=== PATIENT | male | born 2000 | race African-American/Black ===

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

== ENCOUNTER 2022-12-05 22:53 | Emergency (ER) | payer MEDICAID, SELFPAY ==
[2022-12-05 22:53] VITALS: BP 145/97; PULSE 106; RESP 18; TEMP 36.2; O2SAT 99; BMI 22.2
--- NOTE | 2022-12-05 23:00 | ED.RN ---
PT STATES HE TOOK TYLENOL AT 2100 PRIOR TO COMING TO ER.
--- NOTE | 2022-12-05 23:06 | EDS_ITS ---
HPI History of Present Illness Chief Complaint: Other, Pain/Inj Informant: patient Narrative Narrative: Patient presents with right inguinal pain. He states has been going off and on for about 2 weeks. He is eating and drinking normally. He has no nausea and vo miting. He does have some constipation off and on but that has been going on for almost a year and is unchanged. He has not had fevers or chills. He cannot think of anything that makes it better or worse. He states I do not bother with any of that. He states his pain is 11 out of 10. However, while he states this he sitting calmly in bed scrolling through things on his phone. At times it is hard to get him to answer questions because he seems to be looking more at the phone than listening. He does state that he has no urinary problems and no testicular pain. No change in color or odor or difficulty starting or stopping stream. He denies any specific lifting or traumatic event. PFSH PFSH Home Medications naproxen 500 mg tablet 500 mg PO BID PRN pain #14 tabs 12/05/22 [Rx Last Taken Unknown] Allergy/AdvReac Type Severity Reaction Status Date / Time No Known Allergies Allergy Verified 12/05/22 22:57 Social History Smoking Status: Current every day smoker tobacco type: cigarettes ROS ROS ED Constitutional Constitutional ED: Denies chills or fever(s) ENT ENT ED: Denies sore throat Cardiovascular Cardiovascular: Denies chest pain Respiratory/Chest Respiratory/Chest: Denies cough Gastrointestinal Gastrointestinal: Reports constipation and other Details: See history of present illness ; Denies abdominal pain, diarrhea, melena, nausea or vomiting Genitourinary Genitourinary ED: Denies dysuria, hematuria or urinary frequency Musculoskeletal Musculoskeletal: Denies myalgias Integumentary Denies rash Neurologic Neurologic: Denies paresthesias or weakness Endocrine Endocrinology: Denies polydipsia or polyuria Allergic/Immunologic Allergic/Immunologic ED: Denies urticaria EXAM Physical Exam Narrative Exam Narrative: Patient sitting quietly in bed. He is scrolling through phone. He looks comfortable and nontoxic. HEENT shows well-hydrated membranes no sign of trauma Neck is free range of motion. Cardiorespiratory show clear lungs and heart is regular. Abdomen is soft, normal bowel sounds and completely nontender. It is not dist ended. I feel no mass. He points to the left inguinal area as the area of his discomfort. It looks normal on exam. There is no swelling rash mass or infection. Pulses are normal. : No CVA or suprapubic tenderness. His testicles have a normal lie position and are not tender. However, he does have a hernia on the left only when I have him cough and straining. It spontaneously reduces back. He has a small amount of motion on the right but not as much as he does on the left. When I do this exam and he coughs that does cause some discomfort for him. But this hernia spontaneously reduces. Skin shows no skin changes rash infection or abscess Extremities show no edema. Const Vital Signs: 12/05/22 22:53 12/05/22 22:58 Temperature 97.1 F L Temperature Source Temporal Pulse Rate 106 H Respiratory Rate 18 Respiratory Effort Normal Non-Labored Respiratory Pattern Normal Blood Pressure 145/97 H Blood Pressure Mean 113 Pulse Ox 99 Oxygen Delivery Method Room Air MDM MDM MDM Narrative Medical decision making narrative: Patient's been having symptoms off and on for weeks. He has no nausea vomiting. He has no change in his bowel habits although he does have some chronic constipation. His exam is normal other than a spontaneously reducing left inguinal hernia. His testicular exam is normal. I do not think he requires ultrasound looking of the testicles. I do not think he needs x-rays or imaging or CT of his abdomen as his abdomen is benign he is eating and drinking and moving his bowels. I think his symptoms represent a left inguinal hernia. It spontaneously reduces and does not need surgery at this time. I did explain to the patient the difference between a hernia and a hernia that is incarcerated or strangulated. We discussed that if either 1 of these issues occurs he should return. We will give him referral to surgery. We will give nonsteroidals for discomfort. Discharge Plan Triage Chief Complaint: Other, Pain/Inj ED Provider: Ghassan Quinonez Dx/Rx/DC Orders Clinical Impression: Left inguinal hernia Instructions: ED Hernia (Adult) Prescriptions: New naproxen 500 mg tablet 500 mg PO BID PRN (Reason: pain) Qty: 14 0RF Primary Care Provider: Care Physician,No Primary Referrals: Rosas Suarez MD [Med Staff - Active Staff] - As soon as possible Care Physician,No Primary [Primary Care Provider] - Disposition Disposition: Home, Self Care
[2022-12-05 23:29] VITALS: BP 124/63; PULSE 75; RESP 16; O2SAT 98
[2022-12-05] MEDS: Naproxen 500 MG Tablet PO (23:30)
== END 2022-12-05 23:31 | disposition home or self-care (01) ==
LOC: ED 23:18
PROVIDERS: Emergency Provider Emergency Medicine; Visit Provider Emergency Medicine
DX: K40.90 Unilateral inguinal hernia, without obstruction or gangrene, not specified as recurrent (principal); F17.210 Nicotine dependence, cigarettes, uncomplicated
CPT/HCPCS: 99283

== ENCOUNTER 2023-01-18 07:15 | Day surgery (SDC) | payer MEDICAID, SELFPAY ==
[2023-01-18] VITALS (12 sets, daily range): BP systolic 117–151; BP diastolic 71–90; PULSE 64–104; RESP 16–20; TEMP 36.1–36.9; O2SAT 92–100; BMI 25.1
--- NOTE | 2023-01-18 07:33 | HP.PCM.SX_ITS ---
HPI - General HPI Narrative AIMEE YO, is a 22 M who presents for left inguinal hernia repair with mesh. Patient states he was having pain yesterday and also had a bulge that area. Patient currently states the bulge is not there anymore. office visit 12/10/22: HPI: 22-year-old male presents with his girlfriend due to left inguinal hernia.? Patient did go to the ER and have this reduced previously.? Patient states that when he went to the ER in the last week he had a bulge he did not try to reduce it himself.? Patient girlfriend states size of a golf ball.? Patient rated his pain at that time and 9 out of 10 currently patient does not have a bulge and states his pain is a 0 out of 10.? Patient denies any nausea or vomiting with this.? Patient states he has bowel movement every other day and may once a month have some small amount of bright red blood when he wipes.? Patient does admit to history of hemorrhoids has tried Preparation H in the past.? Patient does not drink enough water during the day.? Denies any straining or prolonged time on the toilet. [facility] Medical History Migraine headache Smoker Home Medications NK 12/23/22 [History Last Taken Unknown] Allergy/AdvReac Type Severity Reaction Status Date / Time No Known Allergies Allergy Verified 01/18/23 07:46 Surgical History (Updated 12/23/22 @ 14:14 by Aby Sanchez) No history of previous surgery Social History Smoking Status: Current every day smoker tobacco type: cigarettes Vital Signs Vital Signs Vital Signs: Weight Weight: 155 lb Physical Exam Const oriented x3 and no apparent distress Resp normal respiratory effort Cardio regular rate GI soft to palpation and non-tender Inspection: Negative for abdominal distention Extremity normal to inspection Assessment & Plan Assessment/Plan (1) Inguinal hernia of left side without obstruction or gangrene: PLAN: Plan Plan to do a laparoscopic left inguinal hernia repair with mesh. Reviewed the procedure with the patient including the risks, including but not limited to infection, bleeding, paresthesia, chronic pain, injury to small bowel or contents of the spermatic cord, and recurrence. All questions were answered. Trudi Bojorquez M.D. Pager: [phone] [facility] [address] [place] [address], [facility], [address] [place] [address] Office: [phone]
[2023-01-18] MEDS: Lactated Ringers 1,000 ML 15 ML IV (07:35)
[2023-01-18] MEDS: Cefazolin 2 GM in 0.9% Normal Saline 100 ML IV (08:53)
[2023-01-18] MEDS: Bupivacaine Mpf 0.5% 30 ML VIAL (09:30)
--- NOTE | 2023-01-18 09:35 | PCM.OPRPT ---
Report of Operation Date of Procedure: 01/18/23 Pre-Operative Diagnosis: left inguinal hernia Post-Operative Diagnosis: Left groin pain, no hernia Surgery/Procedure Performed:: Diagnostic laparoscopy Description of Surgical Findings:: No left or right inguinal hernia seen Surgeon: Trudi Bojorquez port patrol officer: Orly Bingham Type of Anesthesia: General/Supplemental Anesthesiologist: Joe Summers Special Medications: Ancef 2 g IV x1 Specimen's removed: none Estimated Blood Loss (mL): < 10 cc Description of Procedure: Indications: 22-year-old male who had left groin pain along with a left bulge in the ER reported reduced hernia Description procedure: The patient was placed on operating table in supine position. A timeout was completed verifying correct patient, procedure, site, position and special equipment prior to beginning procedure. General Anesthesia was induced. The abdomen was prepped and draped in usual sterile fashion. An incision was made in the natural skin line below the umbilicus. The fascia was elevated and incised. The peritoneum was elevated and incised. Entry into the peritoneum was confirmed visually and no bowel was noted in the vicinity of the incision. Felder trocar was placed. The abdomen was insufflated with carbon dioxide to a pressure of 12-15 mmHg. Patient tolerated insufflation well. The laparoscope was then inserted and abdomen inspected. No injuries from initial trocar placement were noted. Patient's inguinal regions were evaluated there is no noted hernia in the right or left groin no direct or indirect?pictures were taken. The abdomen was allowed to collapse. The fascia of the 12 mm trocar was closed with a [id number] 0 Vicryl suture. The skin was closed with sutures of 4-0 Monocryl and Steri-Strips. The patient was extubated. The patient tolerated procedure well and was taken to the postanesthesia care unit in stable condition. Grafts/Implants Used: none Complications none
--- NOTE | 2023-01-18 09:53 | DCINST_ITS ---
Discharge Instructions Diet Discharge Diet: No restrictions Activity May shower in (days): 1 Lifting Restrictions: no lifting > 20 lb for 2 week, no strenous exercise x 4 weeks Dressing / Incision Call your doctor if your incision/area has: Continuous Slow Oozing, Sudden Increased Bleeding and Increased Pain/ Swelling Additional Dressing/Incision Instructions:: Okay to remove OpSite in 1 to 2 days, Steri-Strips will fall off in 7 to 10 days and then will follow-up in 10 days okay to remove Follow Up Care Please Follow Up With: Trudi Bojorquez MD When: Call the office for a follow-up appointment in 2 weeks. Test Results: Test results from this visit will be discussed in further detail at your follow- up appointment, if applicable. Discharge Plan Admission Attending Provider: Trudi Bojorquez Primary Care Provider: Marisela Bull Primary Discharge Orders/Prescriptions Prescriptions: New oxycodone-acetaminophen 5-325 mg tablet 1 tab PO Q6H PRN (Reason: pain) 3 Days Qty: 5 0RF Referrals / Follow Up: Care PhysicianMarisela Primary [Primary Care Provider] - Disposition Disposition (needs filled in before D/C Order can be placed): Home, Self Care
[2023-01-18] MEDS: oxyCODONE 5 MG Tablet PO (12:17)
[2023-01-18] MEDS: Acetaminophen 325 MG Tablet PO (12:18)
== END 2023-01-18 13:01 | disposition home or self-care (01) ==
LOC: SDC 07:18 → AC 07:19
PROVIDERS: Referring Provider Surgery; Visit Provider Surgery
PROC: (CPT 49650; principal; 2023-01-18 08:10)
DX: K40.90 Unilateral inguinal hernia, without obstruction or gangrene, not specified as recurrent (principal); F17.210 Nicotine dependence, cigarettes, uncomplicated
CPT/HCPCS: 49320; 00790; J7120; J2405

== ENCOUNTER 2023-03-28 08:52 | Emergency (ER) | payer MEDICAID, SELFPAY ==
[2023-03-28 08:55] VITALS: BP 123/90; PULSE 87; RESP 17; TEMP 36; O2SAT 97; BMI 22.0
--- NOTE | 2023-03-28 09:01 | EDS_ITS ---
HPI History of Present Illness Chief Complaint: Substance Abuse Onset/Context/Timing Onset: Today Context: Sudden Onset Timing: Continuous Quality: Dizzy Location: Generalized Worsened by: Nothing Relieved by: Nothing Narrative Narrative: Patient presents with dizziness that began today. Patient states he was smoking a joint when he started to feel dizzy. Patient states his brother passed out and he was also smoking the joint with him. Patient admits to some abdominal pain, nausea, and vomiting with the dizziness. Patient denies any chest pain or shortness of breath. Patient denies any other drug use. Patient denies any headaches. PFSH PFSH Medical History Migraine headache Smoker Home Medications oxycodone-acetaminophen 5 mg-325 mg tablet 1 tab PO Q6H PRN pain 3 days #5 tabs 01/18/23 [Rx Last Taken Unknown] Allergy/AdvReac Type Severity Reaction Status Date / Time No Known Allergies Allergy Verified 01/18/23 07:46 Surgical History No history of previous surgery Social History Smoking Status: Current every day smoker tobacco type: cigarettes ROS ROS ED Constitutional Constitutional ED: Denies chills or fever(s) Eyes Eyes: Denies blurry vision or change in vision ENT ENT ED: Denies rhinorrhea or sore throat Cardiovascular Cardiovascular: Denies chest pain or palpitations Respiratory/Chest Respiratory/Chest: Denies cough or dyspnea Gastrointestinal Gastrointestinal: Reports abdominal pain, nausea and vomiting Genitourinary Genitourinary ED: Denies dysuria or hematuria Musculoskeletal Musculoskeletal: Denies back pain or neck pain Integumentary Denies abscess or rash Neurologic Neurologic: Denies headache(s) or weakness Allergic/Immunologic Allergic/Immunologic ED: Denies mouth swelling or urticaria EXAM Physical Exam Const Vital Signs: 03/28/23 08:55 03/28/23 10:22 Temperature 96.8 F L Temperature Source Temporal Pulse Rate 87 Respiratory Rate 17 16 Blood Pressure 123/90 H Blood Pressure Mean 101 Pulse Ox 97 Oxygen Delivery Method Room Air Positive well nourished and well developed General Appearance ED: well developed HEENT Reports moist mucous membranes Neck supple and no JVD Resp normal respiratory effort and clear to auscultation bilaterally Cardio regular rate, regular rhythm and no murmurs GI normal to inspection, nondistended, normoactive bowel sounds and non-tender Palpation: soft Extremity normal to inspection General Extremety ED: Negative for edema or tenderness General Extremity: Negative for edema Neuro oriented x3, CN's II-XII intact bilaterally and no sensory deficits noted Sensorium / Orientation: alert Motor Exam: strength 5/5 throughout Psych mental status grossly normal Skin no rashes or lesions noted MDM MDM MDM Narrative Medical decision making narrative: Differential diagnosis includes substance abuse, electrolyte abnormality, dehydration, and anemia. CBC will be obtained to assess for leukocytosis and anemia. Basic metabolic profile will be obtained to assess for renal function and electrolyte abnormality. Lab Data Attestation: I reviewed the patient's lab results. Lab results narrative: For his reviewed. There is a mild leukocytosis of 13.7. The remainder was within normal limits. Basic metabolic profile was reviewed. Potassium was slightly low at 3.0. Creatinine was slightly elevated at 1.31. The remainder is within normal limits. Labs: Laboratory Results - last 24 hr 03/28/23 03/28/23 08:48 08:48 WBC 13.7 H RBC 4.83 Hgb 14.8 Hct 43.6 MCV 90.3 MCH 30.6 MCHC 33.9 RDW Std Deviation 40.5 RDW Coeff of Radha 12.3 Plt Count 391 MPV 10.4 Immature Gran % (Auto) 0.500 Neut % (Auto) 41.7 L Lymph % (Auto) 50.6 H [place] % (Auto) 6.1 Eos % (Auto) 0.7 Baso % (Auto) 0.4 Absolute Neuts (auto) 5.7 Absolute Lymphs (auto) 6.94 H Nucleated RBC % 0.1 Differential Comment COMMENT Reactive Lymphocytes 1+ Sodium 141 Potassium 3.0 L Chloride 108 H Carbon Dioxide 22.0 Anion Gap 11 BUN 12 Creatinine 1.31 H Estim Creat Clear Calc 93.11 Est GFR (MDRD) Af Amer 88 Est GFR (MDRD) Non-Af 73 BUN/Creatinine Ratio 9.2 L Glucose 188 H Calcium 9.5 Treatment and Re-Evaluation :: Patient was given IV fluids. Patient was given a dose of oral potassium here. Patient feels better on reevaluation. Patient was advised of his findings. Patient was instructed drink plenty of fluids. Patient was instructed to follow-up with his primary care physician in 5 to 7 days. Patient understood and was agreeable with the plan. All questions were answered. Discharge Plan Triage Chief Complaint: Substance Abuse ED Provider: Tacos Allen Dx/Rx/DC Orders Clinical Impression: Drug ingestion, Hypokalemia Instructions: ED Drug Abuse Prescriptions: No Action oxycodone-acetaminophen 5-325 mg tablet 1 tab PO Q6H PRN (Reason: pain) 3 Days Qty: 5 0RF Primary Care Provider: Care Physician,No Primary Referrals: Chica Meyer [Non-Staff] - 5-7 Days Care Physician,No Primary [Primary Care Provider] - [facility] [Non-Staff] - 3-5 Days Disposition Disposition: Home, Self Care
[2023-03-28] MEDS: 0.9% Normal Saline 1,000 ML 1000 ML IV (09:15)
[2023-03-28 09:21] LABS: Absolute Lymphocyte Count 6.94 X10^3/uL (0.83-4.51); Absolute Neutrophil Count 5.7 X10^3/uL (2.0-7.7); Basophil# 0.05 X10^3/uL; Basophil% 0.4 % (0-1); Eosinophil# 0.09 X10^3/uL; Eosinophils% 0.7 % (0-5); Hematocrit 43.6 % (40-54); Hemoglobin 14.8 g/dL (13.0-16.5); Lymphocyte # 6.94 X10^3/ul (0.83-4.51); Lymphocyte % 50.6 % (19-41); Mean Corp Hgb Conc 33.9 g/dL (32-36); Mean Corpuscular Hgb 30.6 pg (27.0-32.0); Mean Corpuscular Volume 90.3 fL (80-94); Mean Platelet Vol. 10.4 fl (6.2-12.0); Monocyte# 0.83 X10^3/uL; Monocyte% 6.1 % (0-10); NRBC Flagged by Analyzer 0.1 % (0-5); Neutrophil # 5.73 X10^3/uL (2.7-7.7); Neutrophil % 41.7 % (47-70); POSITIVE DIFFERENTIAL YES; POSITIVE MORPHOLOGY YES; Platelet Count 391 K/mm3 (150-450); RBC Distribution Width CV 12.3 % (11.6-14.6); RBC Distribution Width SD 40.5 fl (35.1-43.9); Red Blood Count 4.83 M/mm3 (4.6-6.2); White Blood Count 13.7 K/mm3 (4.4-11.0)
[2023-03-28 09:22] LABS: Differential Indicated SCAN CRITERIA MET
[2023-03-28 09:29] LABS: Anion Gap 11 (5-15); BUN 12 mg/dL (7-18); BUN/Creat Ratio 9.2 RATIO (10-20); Calcium,Total 9.5 mg/dL (8.5-10.1); Chloride 108 mmol/L (98-107); Creatinine, Serum 1.31 mg/dL (0.70-1.30); EST Glomerular Filtration Rate 73 mL/min (>60); Est Glom Filt Rate - Afr Amer 88 mL/min (>60); Estimated Creatinine Clearance 93.11 ml/min; Glucose 188 mg/dL (74-106); Sodium Level 141 mmol/L (136-145)
[2023-03-28] MEDS: Potassium Chloride Oral Tablet 20 MEQ 40 MEQ PO (09:44)
[2023-03-28 10:04] LABS: Reactive Lymphocyte 1+
[2023-03-28 10:22] VITALS: RESP 16
[2023-03-28 10:47] VITALS: BP 140/75; PULSE 83; RESP 16; O2SAT 99
--- NOTE | 2023-03-28 11:01 | ED.RN ---
PATIENT CAME BACK TO TRIAGE DESK AFTER RECENT DISCHARGE AND ASKS WHERE DO I GET THIS PRESCRIPTION FILLED AT AND HANDED ME THE DISCHARGE PAPERWORK. THE PAPERWORK SHOWS UNDER HOME MEDICATIONS PERCOCET, BUT NO ACTIVE PRESCRIPTION. I STATED TO THIS PATIENT THIS IS NOT A PRESCRIPTION, THIS JUST SHOWS A PREVIOUSLY PRESCRIBED HOME MEDICATION. HE THEN PROCEEDS TO STATE TO THIS NURSE I DON'T KNOW WHY YOU GOTTA BE SO RUDE, I AM ABOUT TO SMACK THE SHIT OUTTA OF YOU BITCH. HE THEN EXITS THE ER ENTRANCE AND STANDS OUTSIDE THE ED ENTRANCE. SECURITY NOTIFIED OF HIS BEHAVIOR.
== END 2023-03-28 10:50 | disposition home or self-care (01) ==
PROVIDERS: Emergency Provider Emergency Medicine; Visit Provider Emergency Medicine
DX: F12.90 Cannabis use, unspecified, uncomplicated (principal); E87.6 Hypokalemia; F17.210 Nicotine dependence, cigarettes, uncomplicated
CPT/HCPCS: 80048; 85025; 96360; 96361; 99285; J7030; A4216